=== PATIENT | female | born 1985 | race American Indian/Alaskan Native ===

== ENCOUNTER 2016-09-13 12:53 | Inpatient (IN) | payer OTHER ==
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
[2016-09-13] MEDS ORDERED: NACL 0.9% 1000 ML 1,000 ML ONE (13:21)
[2016-09-13] MEDS ORDERED: NACL 0.9% 1000 ML 1,000 ML IV ONE ×5 (13:40→18:35)
[2016-09-13 13:46] LABS: Hematocrit 33.6 % (30.3-42.9); Mean Corpuscular HGB Conc 36 % (30-34); Mean Corpuscular Hemoglobin 29 pg (28-32); Mean Corpuscular Volume 82 fl (79-97); Platelet Count 345 K/mm3 (140-440); Red Blood Count 4.11 M/mm3 (3.65-5.03); Red Cell Distribution Width 14.1 % (13.2-15.2); White Blood Count 13.6 K/mm3 (4.5-11.0)
[2016-09-13 14:16] LABS: Alanine Aminotransferase 14 units/L (7-56); Albumin 3.8 g/dL (3.9-5); Albumin/Globulin Ratio 1.2 %; Alkaline Phosphatase 54 units/L (35-129); Anion Gap 18 mmol/L; BUN/Creatinine Ratio 16.66; Blood Urea Nitrogen 10 mg/dL (7-17); Calcium 9.1 mg/dL (8.4-10.2); Carbon Dioxide 23 mmol/L (22-30); Chloride 100.9 mmol/L (98-107); Glucose 117 mg/dL (65-100); Potassium 4.4 mmol/L (3.6-5.0); Sodium 137 mmol/L (137-145)
--- NOTE | 2016-09-13 15:11 | Cat Scan Report ---
FINAL REPORT PROCEDURE: CT HEAD/BRAIN WO CON TECHNIQUE: Computerized tomography of the head was performed without contrast material. HISTORY: AMS COMPARISON: No prior studies are available for comparison. FINDINGS: Skull and scalp: Normal. Paranasal sinuses: Normal. Ventricles and subarachnoid spaces: Normal. Cerebrum: No evidence of hemorrhage, acute infarction or mass . Cerebellum and brainstem: No evidence of hemorrhage, acute infarction or mass. Vasculature: Normal. Comments: None. IMPRESSION: Normal Examination
[2016-09-13 15:12] LABS: Blastocytes % (Manual) 0 %; Eosinophils % (Manual) 0 % (0.0-4.3)
[2016-09-13 15:13] LABS: Anisocytosis 1+
[2016-09-13 15:14] LABS: Diff Status Complete; Platelet Estimate Consistent w Auto
--- NOTE | 2016-09-13 15:57 | XRay Report ---
FINAL REPORT PROCEDURE: XR CHEST 1V AP TECHNIQUE: Chest radiograph anteroposterior view. CPT 71344 HISTORY: HYPOTENTION COMPARISON: No prior studies are available for comparison. FINDINGS: Heart: Normal. Mediastinum/Vessels: Normal. Metallic clip in the right azygos vein region Lungs/Pleural space: Shallow inspiration with elevation hemidiaphragms.. Bony thorax: No acute osseous abnormality. Life support devices: None. IMPRESSION: No acute cardiopulmonary abnormality.
[2016-09-13] MEDS ORDERED: NARCAN 2 MG/2 ML ONE (18:43)
[2016-09-13] MEDS ORDERED: NARCAN 2 MG/2 ML IV ONE (19:03)
[2016-09-13] MEDS ORDERED: DULCOLAX PR PRN (19:47)
[2016-09-13] MEDS ORDERED: ZOFRAN IV PRN (19:47)
[2016-09-13] MEDS ORDERED: MILK OF MAGNESIA PO PRN (19:47)
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
[2016-09-13 21:04] LABS: Urine Drugs of Abuse Note Disclamer
[2016-09-13 21:34] LABS: Bilirubin,Urine NEG (Negative); Blood,Urine NEG (Negative); Ketones,Urine NEG (Negative); Leukocyte Esterase,Urine NEG (Negative); Nitrite,Urine NEG (Negative); Protein,Urine <15 mg/dL mg/dL (Negative); Urobilinogen,Urine < 2.0 mg/dL (<2.0)
[2016-09-13] MEDS ORDERED: VANCOMYCIN PHARMACY TO DOSE IV SCH (22:00)
[2016-09-13] MEDS ORDERED: VANCOMYCIN 1,500 MG in NACL 0.9% 500 ML 500 ML IV ONE (22:30)
[2016-09-13] MEDS: ZOSYN/NS 4.5GM/100ML 4.5 GM/100 ML VIAL IV SCH (22:33)
[2016-09-14 04:32] LABS: Basophils % (Auto) 0.4 % (0.0-1.8); Eosinophils % (Auto) 0.7 % (0.0-4.3); Hematocrit 31.2 % (30.3-42.9); Hemoglobin 10.9 gm/dl (10.1-14.3); Mean Corpuscular HGB Conc 35 % (30-34); Mean Corpuscular Hemoglobin 29 pg (28-32); Mean Corpuscular Volume 83 fl (79-97); Platelet Count 281 K/mm3 (140-440); Red Blood Count 3.74 M/mm3 (3.65-5.03); Red Cell Distribution Width 14.6 % (13.2-15.2); White Blood Count 9.8 K/mm3 (4.5-11.0)
[2016-09-14 04:41] LABS: BUN/Creatinine Ratio 11.66; Blood Urea Nitrogen 7 mg/dL (7-17); Calcium 7.4 mg/dL (8.4-10.2); Carbon Dioxide 27 mmol/L (22-30); Glucose 69 mg/dL (65-100)
[2016-09-14 05:05] LABS: Anion Gap 9 mmol/L; Chloride 113.1 mmol/L (98-107); Potassium 3.8 mmol/L (3.6-5.0); Sodium 145 mmol/L (137-145)
[2016-09-14] MEDS ORDERED: VANCOMYCIN/NS 1 GM/250 ML 1 GM/250 ML BAG IV SCH (06:30)
[2016-09-14] MEDS: ZOSYN/NS 4.5GM/100ML 4.5 GM/100 ML VIAL IV SCH ×3 (07:20→23:16)
[2016-09-14] MEDS: NACL 0.9% 1000 ML 1,000 ML IV SCH ×2 (11:04→18:43)
[2016-09-14] MEDS: LOVENOX SUB-Q SCH (11:05)
--- NOTE | 2016-09-14 11:13 | Admit Criteria Form ---
Admission Criteria Documentation: DRUG INGESTION OR OVERDOSE Clinical Indications for Admission to Inpatient Care ( Place 'X' for any and all applicable criteria): Admission is indicated for severe toxicity as indicated by ANY ONE of the following(1)(2)(3)(4)(5)(6): [X]I. Inpatient admission required rather than observation care (Also use Drug Ingestion or Overdose: Observation Care guideline as appropriate) because of ANY ONE of the following: [X]a) Altered mental status that is severe or persistent [X]b) Clinical finding (eg, metabolic acidosis, hypoglycemia, bradycardia) that is severe or persistent [X]c) Toxic drug level that is persistent [ ]d) Psychiatric risk status not acceptable for outpatient management [ ]e) Continuous intravenous infusion of anticoagulation, platelet inhibitor, vasoactive, or antiarrhythmic medication (15)(16) [ ]f) Other condition, treatment or monitoring requiring inpatient admission [ ]II. Respiratory abnormalities [ ]III. Specific finding indicating severe and likely prolonged drug toxicity [ ]IV. Hemodynamic instability [ ]V. Dangerous arrhythmia [ ]. Hypertension requiring inpatient treatment Extended stay beyond goal length of stay may be needed for (4): [ ]a) Neurologic or respiratory compromise [ ]b) Hemodynamic instability [ ]c) Persistent toxic drug levels (25) [ ]d) Severe drug toxicities or complications [ ]e) Ongoing antidote treatment (eg, acetaminophen overdose)(5) [ ]f) Older patients(65 years or older) The original [facility] content created by [employer] has been revised. The portions of the content which have been revised are identified through the use of italic text or in bold, and [facility] has neither reviewed nor approved the modified material. All other unmodified content is copyright [facility] Please see references footnoted in the original [facility] [employer] edition 2016 Admission Criteria Met: Yes
[2016-09-14] MEDS ORDERED: LACTATED RINGERS 1,000 ML IV ONE (12:08)
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
--- NOTE | 2016-09-14 17:22 | Progress Note ---
Hospitalist Physical - Constitutional Vitals: Temp Pulse Resp BP Pulse Ox 99.7 F H 72 20 88/45 95 09/14/16 12:00 09/14/16 15:30 09/14/16 15:30 09/14/16 15:30 09/14/16 15:30 General appearance: Present: no acute distress, well-nourished Results - Labs CBC & Chem 7: 09/14/16 03:48 09/14/16 03:48 Labs: Laboratory Last Values WBC 9.8 K/mm3 (4.5-11.0) 09/14/16 03:48 RBC 3.74 M/mm3 (3.65-5.03) 09/14/16 03:48 Hgb 10.9 gm/dl (10.1-14.3) 09/14/16 03:48 Hct 31.2 % (30.3-42.9) 09/14/16 03:48 MCV 83 fl (79-97) 09/14/16 03:48 MCH 29 pg (28-32) 09/14/16 03:48 MCHC 35 % (30-34) H 09/14/16 03:48 RDW 14.6 % (13.2-15.2) 09/14/16 03:48 Plt Count 281 K/mm3 (140-440) 09/14/16 03:48 Lymph % (Auto) 21.3 % (13.4-35.0) 09/14/16 03:48 [place] % (Auto) 8.3 % (0.0-7.3) H 09/14/16 03:48 Eos % (Auto) 0.7 % (0.0-4.3) 09/14/16 03:48 Baso % (Auto) 0.4 % (0.0-1.8) 09/14/16 03:48 Lymph # 2.1 K/mm3 (1.2-5.4) 09/14/16 03:48 [place] # 0.8 K/mm3 (0.0-0.8) 09/14/16 03:48 Eos # 0.1 K/mm3 (0.0-0.4) 09/14/16 03:48 Baso # 0.0 K/mm3 (0.0-0.1) 09/14/16 03:48 Add Manual Diff Complete 09/13/16 13:35 Total Counted 100 09/13/16 13:35 Seg Neutrophils % 69.3 % (40.0-70.0) 09/14/16 03:48 Seg Neuts % (Manual) 88.0 % (40.0-70.0) H 09/13/16 13:35 Band Neutrophils % 0 % 09/13/16 13:35 Lymphocytes % (Manual) 9.0 % (13.4-35.0) L 09/13/16 13:35 Reactive Lymphs % (Man) 0 % 09/13/16 13:35 Monocytes % (Manual) 2.0 % (0.0-7.3) 09/13/16 13:35 Eosinophils % (Manual) 0 % (0.0-4.3) 09/13/16 13:35 Basophils % (Manual) 1.0 % (0.0-1.8) 09/13/16 13:35 Metamyelocytes % 0 % 09/13/16 13:35 Myelocytes % 0 % 09/13/16 13:35 Promyelocytes % 0 % 09/13/16 13:35 Blast Cells % 0 % 09/13/16 13:35 Nucleated RBC % Not Reportable 09/13/16 13:35 Seg Neutrophils # 6.8 K/mm3 (1.8-7.7) 09/14/16 03:48 Seg Neutrophils # Man 12.0 K/mm3 (1.8-7.7) H 09/13/16 13:35 Band Neutrophils # 0.0 K/mm3 09/13/16 13:35 Lymphocytes # (Manual) 1.2 K/mm3 (1.2-5.4) 09/13/16 13:35 Abs React Lymphs (Man) 0.0 K/mm3 09/13/16 13:35 Monocytes # (Manual) 0.3 K/mm3 (0.0-0.8) 09/13/16 13:35 Eosinophils # (Manual) 0.0 K/mm3 (0.0-0.4) 09/13/16 13:35 Basophils # (Manual) 0.1 K/mm3 (0.0-0.1) 09/13/16 13:35 Metamyelocytes # 0.0 K/mm3 09/13/16 13:35 Myelocytes # 0.0 K/mm3 09/13/16 13:35 Promyelocytes # 0.0 K/mm3 09/13/16 13:35 Blast Cells # 0.0 K/mm3 09/13/16 13:35 WBC Morphology Not Reportable 09/13/16 13:35 Hypersegmented Neuts Not Reportable 09/13/16 13:35 Hyposegmented Neuts Not Reportable 09/13/16 13:35 Hypogranular Neuts Not Reportable 09/13/16 13:35 Smudge Cells Not Reportable 09/13/16 13:35 Toxic Granulation Not Reportable 09/13/16 13:35 Toxic Vacuolation Not Reportable 09/13/16 13:35 Dohle Bodies Not Reportable 09/13/16 13:35 Pelger-Huet Anomaly Not Reportable 09/13/16 13:35 Monica Rods Not Reportable 09/13/16 13:35 Platelet Estimate Consistent w auto 09/13/16 13:35 Clumped Platelets Not Reportable 09/13/16 13:35 Plt Clumps, EDTA Not Reportable 09/13/16 13:35 Large Platelets Not Reportable 09/13/16 13:35 Giant Platelets Not Reportable 09/13/16 13:35 Platelet Satelliting Not Reportable 09/13/16 13:35 Plt Morphology Comment Not Reportable 09/13/16 13:35 RBC Morphology Not Reportable 09/13/16 13:35 Dimorphic RBCs Not Reportable 09/13/16 13:35 Polychromasia Not Reportable 09/13/16 13:35 Hypochromasia Not Reportable 09/13/16 13:35 Poikilocytosis Not Reportable 09/13/16 13:35 Anisocytosis 1+ 09/13/16 13:35 Microcytosis Not Reportable 09/13/16 13:35 Macrocytosis Not Reportable 09/13/16 13:35 Spherocytes Not Reportable 09/13/16 13:35 Pappenheimer Bodies Not Reportable 09/13/16 13:35 Sickle Cells Not Reportable 09/13/16 13:35 Target Cells Not Reportable 09/13/16 13:35 Tear Drop Cells Not Reportable 09/13/16 13:35 Ovalocytes Not Reportable 09/13/16 13:35 Helmet Cells Not Reportable 09/13/16 13:35 [place] Bodies Not Reportable 09/13/16 13:35 [place] Rings Not Reportable 09/13/16 13:35 [place] Cells Not Reportable 09/13/16 13:35 Bite Cells Not Reportable 09/13/16 13:35 Crenated Cell Not Reportable 09/13/16 13:35 Elliptocytes Not Reportable 09/13/16 13:35 Acanthocytes (Spur) Not Reportable 09/13/16 13:35 Rouleaux Not Reportable 09/13/16 13:35 Hemoglobin C Crystals Not Reportable 09/13/16 13:35 Schistocytes Not Reportable 09/13/16 13:35 Malaria parasites Not Reportable 09/13/16 13:35 Silverio Bodies Not Reportable 09/13/16 13:35 Hem Pathologist Commnt No 09/13/16 13:35 Sodium 145 mmol/L (137-145) D 09/14/16 03:48 Potassium 3.8 mmol/L (3.6-5.0) 09/14/16 03:48 Chloride 113.1 mmol/L (98-107) H 09/14/16 03:48 Carbon Dioxide 27 mmol/L (22-30) 09/14/16 03:48 Anion Gap 9 mmol/L 09/14/16 03:48 BUN 7 mg/dL (7-17) 09/14/16 03:48 Creatinine 0.6 mg/dL (0.7-1.2) L 09/14/16 03:48 Estimated GFR > 60 ml/min 09/14/16 03:48 BUN/Creatinine Ratio 11.66 % 09/14/16 03:48 Glucose 69 mg/dL (65-100) 09/14/16 03:48 POC Glucose 150 (70-105) H 09/13/16 12:46 Lactic Acid 0.90 mmol/L (0.7-2.0) 09/13/16 15:49 Calcium 7.4 mg/dL (8.4-10.2) L D 09/14/16 03:48 Magnesium 2.00 mg/dL (1.7-2.3) 09/13/16 13:35 Total Bilirubin 0.60 mg/dL (0.1-1.2) 09/13/16 13:35 AST 17 units/L (5-40) 09/13/16 13:35 ALT 14 units/L (7-56) 09/13/16 13:35 Alkaline Phosphatase 54 units/L (35-129) 09/13/16 13:35 Troponin T < 0.010 ng/mL (0.00-0.029) 09/13/16 13:35 Total Protein 7.0 g/dL (6.3-8.2) 09/13/16 13:35 Albumin 3.8 g/dL (3.9-5) L 09/13/16 13:35 Albumin/Globulin Ratio 1.2 % 09/13/16 13:35 TSH 0.576 mlU/mL (0.270-4.200) 09/13/16 13:35 HCG, Qual Negative (Negative) 09/13/16 13:35 Urine Color Yellow (Yellow) 09/13/16 20:58 Urine Turbidity Clear (Clear) 09/13/16 20:58 Urine pH 6.0 (5.0-7.0) 09/13/16 20:58 Ur Specific [place] 1.013 (1.003-1.030) 09/13/16 20:58 Urine Protein <15 mg/dl mg/dL (Negative) 09/13/16 20:58 Urine Glucose (UA) Neg mg/dL (Negative) 09/13/16 20:58 Urine Ketones Neg mg/dL (Negative) 09/13/16 20:58 Urine Blood Neg (Negative) 09/13/16 20:58 Urine Nitrite Neg (Negative) 09/13/16 20:58 Urine Bilirubin Neg (Negative) 09/13/16 20:58 Urine Urobilinogen < 2.0 mg/dL (<2.0) 09/13/16 20:58 Ur Leukocyte Esterase Neg (Negative) 09/13/16 20:58 Urine WBC (Auto) 0.0 /HPF (0.0-6.0) 09/13/16 20:58 Urine RBC (Auto) 0.0 /HPF (0.0-6.0) 09/13/16 20:58 Urine HCG, Qual Negative (Negative) 09/13/16 20:58 Salicylates < 0.3 mg/dL (2.8-20.0) L 09/13/16 13:35 Urine Opiates Screen Presumptive negative 09/13/16 20:58 Urine Methadone Screen Presumptive negative 09/13/16 20:58 Acetaminophen < 15.0 ug/mL (10.0-30.0) 09/13/16 13:35 Ur Barbiturates Screen Presumptive negative 09/13/16 20:58 Ur Phencyclidine Scrn Presumptive negative 09/13/16 20:58 Ur Amphetamines Screen Presumptive positive 09/13/16 20:58 U Benzodiazepines Scrn Presumptive positive 09/13/16 20:58 Urine Cocaine Screen Presumptive negative 09/13/16 20:58 U Marijuana (THC) Screen Presumptive positive 09/13/16 20:58 Drugs of Abuse Note Disclamer 09/13/16 20:58 Plasma/Serum Alcohol < 0.01 gm% (0-0.07) 09/13/16 13:35
[2016-09-14] MEDS ORDERED: AMBIEN PO PRN (17:37)
[2016-09-14] MEDS: TYLENOL PO PRN (18:48)
[2016-09-15] MEDS: NACL 0.9% 1000 ML 1,000 ML IV SCH (03:00)
[2016-09-15 05:22] LABS: Hematocrit 37.8 % (30.3-42.9); Hemoglobin 12.7 gm/dl (10.1-14.3); Mean Corpuscular HGB Conc 34 % (30-34); Mean Corpuscular Hemoglobin 29 pg (28-32); Mean Corpuscular Volume 87 fl (79-97); Platelet Count 247 K/mm3 (140-440); Red Blood Count 4.33 M/mm3 (3.65-5.03); Red Cell Distribution Width 15.2 % (13.2-15.2); White Blood Count 7.7 K/mm3 (4.5-11.0)
[2016-09-15 05:38] LABS: BUN/Creatinine Ratio 16.66; Blood Urea Nitrogen 15 mg/dL (7-17); Carbon Dioxide 19 mmol/L (22-30); Chloride 112.8 mmol/L (98-107); Glucose 72 mg/dL (65-100); Potassium 4.4 mmol/L (3.6-5.0); Sodium 143 mmol/L (137-145)
[2016-09-15 05:46] LABS: Anion Gap 16 mmol/L
[2016-09-15] MEDS: ZOSYN/NS 4.5GM/100ML 4.5 GM/100 ML VIAL IV SCH (06:33)
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
[2016-09-15] MEDS: TYLENOL PO PRN ×2 (08:48→20:26)
[2016-09-15] MEDS: LOVENOX SUB-Q SCH (09:16)
[2016-09-15] MEDS: LEVAQUIN PO SCH (15:49)
--- NOTE | 2016-09-15 21:24 | Event Note ---
Date: 09/15/16 Patient has no respiratory symptoms, chest xray No acute cardiopulmonary abnormality.O2 saturation 100% on room air. Signing off the case. If any pulmonary help needed ,call us back.
[2016-09-16] MEDS: LEVAQUIN PO SCH (09:46)
[2016-09-16] MEDS: LOVENOX SUB-Q SCH (09:46)
[2016-09-16] MEDS: TYLENOL PO PRN (13:15)
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
[2016-09-17] MEDS: TYLENOL PO PRN (09:05)
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
[2016-09-17] MEDS: LEVAQUIN PO SCH (11:17)
[2016-09-17] MEDS: LOVENOX SUB-Q SCH (11:17)
[2016-09-17] MEDS ORDERED: BENTYL IM ONE (14:00)
--- NOTE | 2016-09-17 16:10 | Progress Note ---
Subjective - Reason for Consult Consult date: 09/17/16 Reason for consult: Psychiatry Follow-up - Chief Complaint Chief complaint: "Kellen" This is a 31-year-old woman who was brought to the hospital by yovani Rosario. She reported taking 3 pills of 2mg Xanax that her friend gave her. Today patient is calm and cooperative during assessment. She stated that she take 12- 14 mg of xanax a day. She stated that she don't know what happened to her once she smoked marijuanaprior to her admission to [facility]. She stated that she smoke marijuana daily. She denies using amphetamines, but positive for amphetamines. She denies SI/HI's, AVH's anxiety, and depression symptoms. Mental Status Exam - Vital signs Last Vital Signs Temp 99.0 F 09/17/16 11:00 Pulse 56 L 09/17/16 11:00 Resp 20 09/17/16 11:00 BP 124/80 09/17/16 11:00 Pulse Ox 99 09/17/16 07:00 - Exam Narrative exam: MSE: Appearance: calm, cooperative Behavior: regular eye contact Speech: regular rate and tone Mood: "I am okay" Affect: congruent to mood Thought Process: linear Thought Content: denies SI/HI's and AVH's Motor Activity: sitting up in bed Cognition: A/Ox 3 Insight: fair Judgment: fair Assessment and Plan Impression: sedative/hypnotic use disorder/benzodiazepine, Substance Use DO ( marijuana/amphetamines). Today patient is calm and cooperative during assessment. No withdrawals symptoms noted. Recommendation: CIWA if needed and treat accordingly. Patient needs assistance with insurance, transitional homes, and primary care services. Monitor for benzo withdrawals symptoms (sleep disturbance, irritability, increased tension, N/V and anxiety, sweating, hand tremor, and sweating).
[2016-09-17 17:20] VITALS: BP 163/70
[2016-09-17] MEDS ORDERED: TRIPLE ANTIBIOTIC TP ONE (19:05)
== END 2016-09-17 18:55 | disposition home or self-care (01) | DRG 871 ==
LOC: ED 12:53 → CC1 19:47 → 3A 09-15 10:22
PROVIDERS: ADMIT Internal Medicine; ATTEND Internal Medicine
DX: A41.51 Sepsis due to Escherichia coli [E. coli] (principal); G92 Toxic encephalopathy; R57.1 Hypovolemic shock; N39.0 Urinary tract infection, site not specified; T43.623A Poisoning by amphetamines, assault, initial encounter; T68.XXXA Hypothermia, initial encounter; F19.10 Other psychoactive substance abuse, uncomplicated; Z71.51 Drug abuse counseling and surveillance of drug abuser; Y92.89 Other specified places as the place of occurrence of the external cause
CPT/HCPCS: 36415; 51702; 70450; 71010; 80048; 80053; 80307; 80320; 81001; 81025; 82140; 82962; 83735; 84443; 84484; 84703; 85007; 85025; 87040; 87076; 87086; 87186; 93005; 93010; 96361; 96365; 96366; 99406; A6250; G0480; J0500; J1650; J2310; J2543; J3370; J7030; J7040; J7120